=== PATIENT | male | born 1960 | race Caucasian/White ===

== ENCOUNTER 2023-07-27 13:16 | Emergency (ER) | payer SELFPAY ==
[2023-07-27 13:24] VITALS: BP 134/75; PULSE 75; RESP 18; TEMP 36.7; O2SAT 99; BMI 31.7
[2023-07-27 13:51] LABS: Basophils % 0.2 %; Eosinophils # 0.1 10^3/uL (0.0-0.8); Eosinophils % 0.8 %; Hematocrit 49.5 % (37-53); Lymphocytes # 2.4 10^3/uL (0.8-4.8); Lymphocytes % 25.4 %; Mean Corpuscular HGB Conc 35.2 g/dL (30-55); Mean Corpuscular Hemoglobin 30.9 pg (27-33); Mean Corpuscular Volume 87.9 fl (82-101); Mean Platelet Volume 10.5 fL (7.4-10.4); Monocytes # 0.8 10^3/uL (0.2-0.9); Monocytes % 8.1 %; Neutrophils # 6.24 10^3/uL (1.8-7.7); Neutrophils % 65.2 %; Nucleated Red Blood Cells % 0 %; Platelet Count 234 10^3/cmm (157-399); Red Blood Count 5.63 10^6/uL (3.85-5.65); Red Cell Distribution Width 12.2 % (12.1-15.1); White Blood Count 9.59 10^3/uL (3.29-11.43)
[2023-07-27 14:25] LABS: Alanine Aminotransferase 22 U/L (0-41); Albumin Level 4.1 g/dL (3.5-5.2); Alkaline Phosphatase 75 U/L (40-130); Anion Gap 18.2 (5-19); Aspartate Amino Transferase 15 U/L (0-40); Blood Urea Nitrogen 23 mg/dL (8-23); Calcium 9.2 mg/dL (8.5-10.5); Carbon Dioxide 24 mmol/L (22-29); Chloride 94 mmol/L (98-107); Creatinine Clr Calc Pharmacy 63.2696; Globulin 3.6 g/dL (1.3-4.6); Glomerular Filtration Rate 55.4 mL/min (90-130); Glucose 404 mg/dL (65-115); Lipase 25 U/L (13-60); Osmolality Calculated 295 mOsm/kg (285-295); Potassium 4.2 mmol/L (3.5-5.1); Sodium 132 mmol/L (136-145); Total Bilirubin 0.5 mg/dL (0.15-1.2); Total Protein 7.7 g/dL (6.6-8.7)
--- NOTE | 2023-07-27 14:28 | ED_ITS ---
HPI - Nausea/Vomiting/Diarrhea 2 General: Chief complaint: Nausea/Vomiting/Diarrhea Stated complaint: abd pain Time Seen by Provider: 07/27/23 14:26 History of Present Illness: 63-year-old male patient comes in today with nausea for the last 2 to 3 days. Patient has a history of diabetes mellitus. Patient has been off his medications for the last 4 months due to lack of insurance. Patient was on Ozempic and metformin. Patient states he does have some metformin but is not taking it routinely. Patient appears nontoxic. Patient appears in no pain. Patient denies any other chronic medical problems. Associated nausea: Yes Associated symtoms: Reports nausea Review of Systems 2 General: Reports: 10 or more systems reviewed and unremarkable except in HPI and below GI: Reports: nausea PFSH ED 2 PFSH: Social History Smoking and tobacco/nicotine status: former use of tobacco/nicotine Physical Exam 2 Const: COMMON NORMALS: alert HENMT: COMMON NORMALS: normocephalic HEAD & SCALP: normocephalic Neck/C-Spine: COMMON NORMALS: full ROM Resp: COMMON NORMALS: normal respiratory effort and clear to auscultation bilaterally AUSCULTATION: clear to auscultation bilaterally Cardio: COMMON NORMALS: regular rate and regular rhythm RATE: regular rate RHYTHM: regular rhythm GI: COMMON NORMALS: Soft to palpation and non-tender PALPATION: Yes Soft to palpation Back/Pelvis: COMMON NORMALS: thoracic and lumbar spine normal to inspection Extremity: COMMON NORMALS: normal to inspection and no pedal edema Neuro: SENSORIUM/ORIENTATION: Yes alert Psych: COMMON NORMALS: cooperative Skin: COMMON NORMALS: turgor normal GENERAL SKIN EXAM: turgor normal Course 2 Vital Signs: Vital signs: Vital Signs Temperature 98.0 F 07/27/23 13:24 Pulse Rate 75 07/27/23 13:24 Respiratory Rate 18 07/27/23 13:24 Blood Pressure 134/75 07/27/23 13:24 Pulse Oximetry 99 07/27/23 13:24 MDM - Nausea/Vomiting/Diarrhea Medical Decision Making 63-year-old male patient comes in today for complaints of nausea for some time since being without his diabetes medication. Patient reports that he lost his insurance and has been unable to afford medication for his diabetes. On exam abdomen soft nontender. Skin is warm and dry. Vital signs are normal. Differential diagnosis includes hypoglycemia, hyperglycemia, gallbladder disease, electrolyte imbalance, anxiety about health. Patient was infused with 1 L of IV fluids with significant improvement of symptoms. Patient was also given 10 units reduction of blood glucose to 269. We will start patient on glipizide 5 mg once daily in the a.m. Patient will also instructed to continue with his metformin 1-2 tabs twice a day. Prescription for given for 1 month with 2 refills till patient can get followed up with primary care or insurance. Patient states understanding of care plan and need for follow-up or return to the ER. Lab Data 07/27/23 13:37 07/27/23 13:37 Laboratory Results WBC 9.59 10^3/uL (3.29-11.43) 07/27/23 13:37 RBC 5.63 10^6/uL (3.85-5.65) 07/27/23 13:37 Hgb 17.40 g/dL (11.27-16.99) H 07/27/23 13:37 Hct 49.5 % (37-53) 07/27/23 13:37 MCV 87.9 fl (82-101) 07/27/23 13:37 MCH 30.9 pg (27-33) 07/27/23 13:37 MCHC 35.2 g/dL (30-55) 07/27/23 13:37 RDW 12.2 % (12.1-15.1) 07/27/23 13:37 Plt Count 234 10^3/cmm (157-399) 07/27/23 13:37 MPV 10.5 fL (7.4-10.4) H 07/27/23 13:37 Neut % (Auto) 65.2 % 07/27/23 13:37 Lymph % (Auto) 25.4 % 07/27/23 13:37 Burke % (Auto) 8.1 % 07/27/23 13:37 Eos % (Auto) 0.8 % 07/27/23 13:37 Baso % (Auto) 0.2 % 07/27/23 13:37 Neut # (Auto) 6.24 10^3/uL (1.8-7.7) 07/27/23 13:37 Lymph # (Auto) 2.4 10^3/uL (0.8-4.8) 07/27/23 13:37 Burke # (Auto) 0.8 10^3/uL (0.2-0.9) 07/27/23 13:37 Eos # (Auto) 0.1 10^3/uL (0.0-0.8) 07/27/23 13:37 Baso # (Auto) 0.0 10^3/uL (0.0-0.1) 07/27/23 13:37 Nucleated RBC % (auto) 0 % 07/27/23 13:37 Nucleated RBCs # 0.0 /100WBC 07/27/23 13:37 Sodium 132 mmol/L (136-145) L 07/27/23 13:37 Potassium 4.2 mmol/L (3.5-5.1) 07/27/23 13:37 Chloride 94 mmol/L (98-107) L 07/27/23 13:37 Carbon Dioxide 24 mmol/L (22-29) 07/27/23 13:37 Anion Gap 18.2 (5-19) 07/27/23 13:37 BUN 23 mg/dL (8-23) 07/27/23 13:37 Creatinine 1.3 mg/dL (0.7-1.2) H 07/27/23 13:37 GFR Calculation 55.4 mL/min (90-130) L 07/27/23 13:37 Glucose 404 mg/dL (65-115) H 07/27/23 13:37 POC Glucose 269 mg/dL (70-110) H 07/27/23 16:02 Calculated Osmolality 295 mOsm/kg (285-295) 07/27/23 13:37 Calcium 9.2 mg/dL (8.5-10.5) 07/27/23 13:37 Total Bilirubin 0.5 mg/dL (0.15-1.2) 07/27/23 13:37 AST 15 U/L (0-40) 07/27/23 13:37 ALT 22 U/L (0-41) 07/27/23 13:37 Alkaline Phosphatase 75 U/L (40-130) 07/27/23 13:37 Total Protein 7.7 g/dL (6.6-8.7) 07/27/23 13:37 Albumin 4.1 g/dL (3.5-5.2) 07/27/23 13:37 Globulin 3.6 g/dL (1.3-4.6) 07/27/23 13:37 Lipase 25 U/L (13-60) 07/27/23 13:37 Urine Color Yellow (Yellow) 07/27/23 14:44 Urine Appearance Sl hazy (CLEAR) A 07/27/23 14:44 Urine pH 5 (5-7) 07/27/23 14:44 Ur Specific [place] 1.020 (1.005-1.030) 07/27/23 14:44 Urine Protein 1+ (Negative) H 07/27/23 14:44 Urine Glucose (UA) 4+ (Normal) H 07/27/23 14:44 Urine Ketones 1+ (Negative) H 07/27/23 14:44 Urine Blood Neg (Negative) 07/27/23 14:44 Urine Nitrate Negative (Negative) 07/27/23 14:44 Urine Bilirubin 1+ (Negative) H 07/27/23 14:44 Urine Urobilinogen Norm mg/dL (Negative) 07/27/23 14:44 Ur Leukocyte Esterase Trace (Negative) H 07/27/23 14:44 Urine RBC 0-4 /hpf (0-2) H 07/27/23 14:44 Urine WBC 5-10 /hpf (0-5) H 07/27/23 14:44 Ur Squamous Epith Cells 0-4 /hpf (0-5) H 07/27/23 14:44 Amorphous Sediment Not Reportable 07/27/23 14:44 Urine Bacteria None /hpf (NONE) 07/27/23 14:44 Hyaline Casts >100 /lpf H 07/27/23 14:44 Fine Granular Casts 0-4 /lpf H 07/27/23 14:44 Urine Mucus 1+ /hpf 07/27/23 14:44 Serum Ketones Negative (Negative) 07/27/23 13:33 No radiology studies performed this visit Discharge Plan Discharge Patient Disposition: Home Clinical Impression: Dehydration Hyperglycemia due to type 2 diabetes mellitus Qualifiers: Diabetes mellitus senior care insulin use: without senior care use Qualified Code(s): E11.65 - Type 2 diabetes mellitus with hyperglycemia Condition: Stable Prescriptions: New glipizide 5 mg tablet 5 mg PO DAILY Qty: 30 2RF metformin 500 mg tablet extended release 24 hr 1,000 mg PO BID 30 Days Qty: 120 2RF No Action omeprazole 20 mg tablet,delayed release (DR/EC) 20 mg PO DAILY (DME) Diabetic shoes with Acommodated Custom Molded Orthotics See Rx Instructions .Route .MEDSUPPLY Qty: 1 0RF Rx Instructions: As directed [facility] mupirocin 2 % ointment 1 applic topical BID Qty: 22 0RF losartan 25 mg tablet 25 mg PO QAM Discharge Orders: Discharge ED (Routine); Ordered 07/27/23 Ordered By: Nic Jay Referrals: Roge Collazo DO [Primary Care Provider] - Discharge Diet: Usual diet Discharge Activity: Increase activity as tolerated Patient Instructions: Diabetic Hyperglycemia (ED) Activity Restrictions/Additional Instructions: Start glipizide 5 mg every a.m. or at the start of your day to help control your blood sugar. Drink plenty of water and fluids. Take metformin as directed. Follow-up with primary care in 1 to 2 weeks for recheck. Return to ED for worsening symptoms. Coding Level of Care Code ED [employer]
[2023-07-27 14:54] LABS: Ketone (Acetest) Serum Negative (Negative)
[2023-07-27] MEDS: sodium chloride 0.9% 1,000 ML 999 ML IV (15:00)
[2023-07-27] MEDS: insulin regular-human 100 units/1 mL 10 UNIT IVP (15:03)
[2023-07-27 15:20] LABS: Glucose Urine UA 4+ (Normal); Ketones Urine 1+ (Negative); Protein Urine 1+ (Negative); Urine Appearance SL Hazy (CLEAR); Urine Color Yellow (Yellow); pH Urine 5 (5-7)
[2023-07-27 15:21] LABS: Add Urine Microscopic? YES; Bilirubin Urine 1+ (Negative); Blood Urine Neg (Negative); Leukocyte Esterase Urine Trace (Negative); Nitrate Urine Negative (Negative); Urobilinogen Urine Norm (Negative)
[2023-07-27 15:46] LABS: Add Urine Culture? No; Fine Granular Casts Urine 0-4 /lpf; Hyaline Casts Urine >100 /lpf; Mucus Urine 1+ /hpf; RBC Urine 0-4 /hpf (0-2); Squamous Epithelial Cell Urine 0-4 /hpf (0-5)
[2023-07-27 16:09] LABS: Glucose Point of Care 269 mg/dL (70-110)
== END 2023-07-27 16:32 | disposition home or self-care (01) ==
PROVIDERS: Emergency Medicine; Emergency Provider Nurse Practitioner Family; PCP Family Medicine
DX: E11.65 Type 2 diabetes mellitus with hyperglycemia (principal); E86.0 Dehydration; Z87.891 Personal history of nicotine dependence
CPT/HCPCS: 36415; 36416; 80053; 81001; 82009; 82962; 83690; 85025; 96361; 96374; 99284; J1815; J7030

== ENCOUNTER → 2023-09-12 11:05 | Outpatient (BNVA) | payer SELFPAY | PROVIDERS: PCP Family Medicine; Visit Provider Podiatrist Foot & Ankle Surgery | DX: L97.522 Non-pressure chronic ulcer of other part of left foot with fat layer exposed (principal); E11.42 Type 2 diabetes mellitus with diabetic polyneuropathy | CPT/HCPCS: 87070; 87075; 87077; 87186; 87205 ==

== ENCOUNTER → 2023-12-28 10:36 | Outpatient (BNVA) | payer SELFPAY | PROVIDERS: Visit Provider Internal Medicine | DX: E11.42 Type 2 diabetes mellitus with diabetic polyneuropathy (principal); E78.5 Hyperlipidemia, unspecified; R73.9 Hyperglycemia, unspecified | CPT/HCPCS: 36415; 80053; 80061; 82044; 83036 ==

== ENCOUNTER 2024-04-17 09:09 | Outpatient (CLI) | payer SELFPAY ==
[2024-04-17 09:59] LABS: Estmated Average Glucose 183
[2024-04-17 10:03] LABS: Alanine Aminotransferase 28 U/L (0-41); Albumin Level 4.4 g/dL (3.5-5.2); Alkaline Phosphatase 65 U/L (40-130); Anion Gap 12.7 (5-19); Aspartate Amino Transferase 18 U/L (0-40); Blood Urea Nitrogen 22 mg/dL (8-23); Calcium 9.6 mg/dL (8.5-10.5); Carbon Dioxide 29 mmol/L (22-29); Chloride 101 mmol/L (98-107); Chol HDL Ratio 5.03 mg/dL (1.0-5.00); Cholesterol 186 mg/dL (0-200); Globulin 3.2 g/dL (1.3-4.6); Glomerular Filtration Rate 84.4 mL/min (90-130); Glucose 144 mg/dL (65-115); HDL Cholesterol 37 mg/dL (60-100); LDL Cholesterol Calculated 116 mg/dL (50-129); LDL HDL Ratio 3.14 RATIO (0.00-3.22); Osmolality Calculated 292 mOsm/kg (285-295); Potassium 4.7 mmol/L (3.5-5.1); Sodium 138 mmol/L (136-145); Total Bilirubin 0.4 mg/dL (0.15-1.2); Total Protein 7.6 g/dL (6.6-8.7); Triglycerides 164 mg/dL (0-150)
[2024-04-17 10:04] LABS: Creatinine Urine, Random 130 mg/dL (39-259); Microalbum Creatinine Ratio Ur 208 mg/dL (0-20); Microalbumin Random Urine 27 ug/dL (0-20)
== END 2024-04-17 09:10 | disposition home or self-care (01) ==
LOC: LAB 09:10
PROVIDERS: Visit Provider Internal Medicine
DX: E11.42 Type 2 diabetes mellitus with diabetic polyneuropathy (principal); E78.5 Hyperlipidemia, unspecified
CPT/HCPCS: 36415; 80053; 80061; 82044; 83036

== ENCOUNTER → 2024-07-18 09:51 | Outpatient (BNVA) | payer MEDICARE, SELFPAY | PROVIDERS: Visit Provider Internal Medicine | DX: E11.42 Type 2 diabetes mellitus with diabetic polyneuropathy (principal); Z79.4 Long term (current) use of insulin; E78.2 Mixed hyperlipidemia | CPT/HCPCS: 99214 ==

== ENCOUNTER → 2024-08-01 12:53 | Outpatient (BNVA) | payer MEDICARE, SELFPAY | PROVIDERS: Visit Provider Podiatrist Foot & Ankle Surgery | DX: E11.621 Type 2 diabetes mellitus with foot ulcer (principal); L97.523 Non-pressure chronic ulcer of other part of left foot with necrosis of muscle; E11.42 Type 2 diabetes mellitus with diabetic polyneuropathy; M20.41 Other hammer toe(s) (acquired), right foot; M20.42 Other hammer toe(s) (acquired), left foot; Z79.4 Long term (current) use of insulin | CPT/HCPCS: 11042; 99213 ==

== ENCOUNTER → 2024-08-21 06:48 | Outpatient (BNVA) | payer MEDICARE, SELFPAY | PROVIDERS: Visit Provider Podiatrist Foot & Ankle Surgery | DX: E11.42 Type 2 diabetes mellitus with diabetic polyneuropathy (principal); E11.621 Type 2 diabetes mellitus with foot ulcer; L97.522 Non-pressure chronic ulcer of other part of left foot with fat layer exposed; Z79.4 Long term (current) use of insulin | CPT/HCPCS: 99213 ==

== ENCOUNTER → 2024-09-18 08:44 | Outpatient (BNVA) | payer MEDICARE, SELFPAY | PROVIDERS: Visit Provider Podiatrist Foot & Ankle Surgery | DX: E11.621 Type 2 diabetes mellitus with foot ulcer (principal); L97.522 Non-pressure chronic ulcer of other part of left foot with fat layer exposed; E11.42 Type 2 diabetes mellitus with diabetic polyneuropathy; Z79.4 Long term (current) use of insulin; M62.462 Contracture of muscle, left lower leg; M77.42 Metatarsalgia, left foot | CPT/HCPCS: 11042; 73630; 99214 ==

== ENCOUNTER → 2024-10-02 11:18 | Outpatient (BNVA) | payer MEDICARE, SELFPAY | PROVIDERS: Visit Provider Podiatrist Foot & Ankle Surgery | DX: E11.621 Type 2 diabetes mellitus with foot ulcer (principal); L97.522 Non-pressure chronic ulcer of other part of left foot with fat layer exposed; E11.42 Type 2 diabetes mellitus with diabetic polyneuropathy; M62.462 Contracture of muscle, left lower leg; M77.42 Metatarsalgia, left foot; Z79.4 Long term (current) use of insulin | CPT/HCPCS: 99213 ==

== ENCOUNTER → 2024-10-08 14:54 | Outpatient (BNVA) | payer MEDICARE, SELFPAY | DX: Z12.5 Encounter for screening for malignant neoplasm of prostate (principal) | CPT/HCPCS: G0103 ==

== ENCOUNTER → 2024-10-15 14:18 | Outpatient (BNVA) | payer MEDICARE, SELFPAY | PROVIDERS: Visit Provider Podiatrist Foot & Ankle Surgery | DX: E11.621 Type 2 diabetes mellitus with foot ulcer (principal); L97.523 Non-pressure chronic ulcer of other part of left foot with necrosis of muscle; E11.42 Type 2 diabetes mellitus with diabetic polyneuropathy; M62.462 Contracture of muscle, left lower leg; M77.42 Metatarsalgia, left foot; L03.116 Cellulitis of left lower limb; Z79.4 Long term (current) use of insulin | CPT/HCPCS: 11043; 99214 ==

== ENCOUNTER → 2024-10-21 09:16 | Outpatient (BNVA) | payer MEDICARE, SELFPAY | PROVIDERS: Visit Provider Podiatrist Foot & Ankle Surgery | DX: E11.42 Type 2 diabetes mellitus with diabetic polyneuropathy (principal); M62.462 Contracture of muscle, left lower leg; M77.42 Metatarsalgia, left foot; L97.523 Non-pressure chronic ulcer of other part of left foot with necrosis of muscle; E11.621 Type 2 diabetes mellitus with foot ulcer; Z79.4 Long term (current) use of insulin | CPT/HCPCS: 99213 ==

== ENCOUNTER → 2024-10-24 10:19 | Outpatient (BNVA) | payer MEDICARE, SELFPAY | PROVIDERS: Visit Provider Student in an Organized Health Care Education/Training Program | DX: Z12.11 Encounter for screening for malignant neoplasm of colon (principal) | CPT/HCPCS: 99024; 99204 ==

== ENCOUNTER → 2024-10-31 11:51 | Outpatient (BNVA) | payer MEDICARE, SELFPAY | DX: E78.2 Mixed hyperlipidemia (principal); E11.42 Type 2 diabetes mellitus with diabetic polyneuropathy; Z79.4 Long term (current) use of insulin | CPT/HCPCS: 80053; 80061; 83036 ==

== ENCOUNTER 2024-11-01 13:07 | Outpatient (CLI) | payer MEDICARE, SELFPAY ==
--- NOTE | 2024-11-01 13:30 | CT_ITS ---
WS: [id number] LDCT LUNG CANCER SCREENING HISTORY: screening TECHNIQUE: Axial imaging performed from the apices to 1 cm below the costophrenic angles. Coronal and sagittal reformats are submitted with axial MIP series. All CT scans at [facility] use at least one of these dose optimization techniques: automated exposure control; mA and/or kV adjustment per patient size (includes targeted exams where dose is matched to clinical indication); or iterative reconstruction. DLP: 120.60 mGy.cm DIvol: Mean CTDIvol: 2.70 (mGy) COMPARISON: None available. Diagnostic quality: Satisfactory Lungs: Mild pulmonary hyperexpansion. Mild peripheral interstitial thickening. No pulmonary mass or nodule. No endobronchial lesions. Heart: Normal size heart with no pericardial effusion.. Other findings: Mild atherosclerosis aorta. Normal size pulmonary artery. No mediastinal or hilar adenopathy. Mild hyperplasia LEFT adrenal gland. Mild thoracic spondylosis. CT/CT lung screening [id number] IMPRESSION: LUNG-RADS: 2-Benign Appearance or Behavior FOLLOW UP: 12 Month: Continue annual screening with LDCT OTHER FINDINGS (S MODIFIER): None.
[2024-11-01 14:02] LABS: Creatinine Urine, Random 272 mg/dL (39-259)
[2024-11-01 14:16] LABS: Microalbum Creatinine Ratio Ur 294 mg/dL (0-20); Microalbumin Random Urine 80 ug/dL (0-20)
== END 2024-11-01 13:08 | disposition home or self-care (01) ==
LOC: RAD 13:08
PROVIDERS: Absent Provider Internal Medicine
DX: Z12.2 Encounter for screening for malignant neoplasm of respiratory organs (principal); I70.0 Atherosclerosis of aorta; Z87.891 Personal history of nicotine dependence; E11.42 Type 2 diabetes mellitus with diabetic polyneuropathy; Z79.4 Long term (current) use of insulin
CPT/HCPCS: 71271; 82044

== ENCOUNTER → 2024-11-05 08:33 | Outpatient (BNVA) | payer MEDICARE, SELFPAY | PROVIDERS: Visit Provider Internal Medicine | DX: E11.42 Type 2 diabetes mellitus with diabetic polyneuropathy (principal); Z79.4 Long term (current) use of insulin; E78.2 Mixed hyperlipidemia | CPT/HCPCS: 99214 ==

== ENCOUNTER → 2024-11-11 09:25 | Outpatient (BNVA) | payer MEDICARE, SELFPAY | PROVIDERS: Visit Provider Podiatrist Foot & Ankle Surgery | DX: E11.621 Type 2 diabetes mellitus with foot ulcer (principal); L97.523 Non-pressure chronic ulcer of other part of left foot with necrosis of muscle; E11.42 Type 2 diabetes mellitus with diabetic polyneuropathy; M62.462 Contracture of muscle, left lower leg; M77.42 Metatarsalgia, left foot; Z79.4 Long term (current) use of insulin | CPT/HCPCS: 11042 ==

== ENCOUNTER 2024-11-12 12:41 | Day surgery (SDC) | payer MEDICARE, SELFPAY ==
[2024-11-12 12:47] VITALS: BMI 35.2
[2024-11-12 12:55] VITALS: BP 127/70; PULSE 70; RESP 18; TEMP 36.6; O2SAT 97
--- NOTE | 2024-11-12 13:04 | P.ANESASSM_ITS ---
Pre-Anesthetic Assessment Height/Weight: Height 1.73 m Weight 105.233 kg Temp Pulse Resp BP Pulse Ox O2 Del Method 97.9 F 70 18 127/70 97 Room Air 11/12/24 12:55 11/12/24 12:55 11/12/24 12:55 11/12/24 12:55 11/12/24 12:55 11/12/24 12:55 Operation Date: 11/12/24 14:00 Proposed Procedures p Colonoscopy 85269 G0121 Z12.11(Not Applicable) - Melvin Marquez MD Familial anesthetic complications: None Was Beta Virgil taken within 24 hours: N/A Was Clonidine taken within 24 hours: N/A Social No alcohol and No tobacco (Quit 2 years ago) Exam alert, oriented x 3, clear to auscultation bilaterally and regular rate & rhythm Airway Submandibular: within normal limits Cervical ROM: within normal limits Mallampati: Class II Dentition: full History/ROS No significant history except as noted and No significant complaints Pulmonary Chronic Obstructive Pulmonary Disease and Exertional Dyspnea CV/HEM Coronary Artery Disease and Hypertension None reported Hepatic None reported GI Gastroesophageal Reflux Disease (None this morning) Metabolic Diabetes Mellitus and Hyperlipidemia [facility] Lower Back Pain and Osteoarthritis/DJD Neuropsych Neuropathy Anesthetic Plan ASA status: 3 Anesthesia: Anesthesia Evaluation, General and MAC Risk of > 500 ml blood loss (7ml/kg in children): No Medications/Allergies Home Medications ?Medication ?Instructions ?Recorded ?Confirmed ?Last Taken ?Type Diabetic shoes #1 ea 08/01/24 11/11/24 Unkn own Rx blood-glucose,payer specialist,cont #1 ea 08/05/24 11/11/24 Un known Rx (Dexcom G7 Freezer Operator) blood-glucose sensor (Dexcom G7 #2 ea 09/30/24 5 Unknown Rx Sensor device) atorvastatin 40 mg tablet 40 mg PO DAILY #90 tabs 10/1311/11/24 11/11/24 Rx losartan 50 mg tablet 50 mg PO DAILY #90 tabs 10/1311/11/24 11/11/24 Rx gabapentin 300 mg capsule 300 mg PO TID 90 days #270 c aps 11/05/24 11/11/24 07/0 06/08 Rx nateglinide 60 mg tablet 60 mg PO TID 90 days #270 ta bs 11/05/24 11/11/24 11/11/24 Rx insulin glargine 100 unit/mL (3 80 unit SUBCUT QAM 11/11/24 11/11/24 History mL) subcutaneous pen (Lantus Solostar U-100 Insulin) Allergies Allergy/AdvReac Type Severity Reaction Status Date / Time No Known Allergies Allergy Verified 11/12/24 12:51 Current Medications Generic Name Dose Route Start Last Admin Trade Name Freq PRN Reason Stop Dose Admin Sodium Chloride 1,000 mls @ 15 mls/hr 11/12/24 12:43 11/12/24 12:55 Sodium Chloride 0.9% IV 11/13/24 12:42 15 mls/hr .Q24H PRN Administration COLONOSCOPY FLUIDS PFSH Anesthesia Medical History Colon cancer screening Hypertension Tonsillectomy planned Amputation of right index finger Hyperglycemia Hyperlipemia Type 2 diabetes mellitus with diabetic polyneuropathy Family History Mother Stroke Father Drug dependence Brother Cancer Gastric Social History Smoking and tobacco/nicotine status: former use of tobacco/nicotine
--- NOTE | 2024-11-12 13:05 | W.PM.OPSUD ---
Surgery/Procedure H&P Update DATE OF PROCEDURE: November 12, 2024 DATE H&P PERFORMED: 10/24/24 H&P UPDATE INFORMATION: I have reviewed H&P completed within last 30 days, I have examined patient prior to procedure and No changes to prior documentation PLANNED PROCEDURE: Operation Date: 11/12/24 14:00 Proposed Procedures p Colonoscopy [id number] G0121 Z12.11(Not Applicable) - Melvin Marquez MD
[2024-11-12 13:51] VITALS: BP 108/51; PULSE 56; RESP 16; TEMP 36.9; O2SAT 95
[2024-11-12 14:10] VITALS: BP 116/59; PULSE 65; RESP 18; O2SAT 94
== END 2024-11-12 14:30 | disposition home or self-care (01) ==
PROVIDERS: Visit Provider Student in an Organized Health Care Education/Training Program
PROC: 0DJD8ZZ Inspection of Lower Intestinal Tract, Via Natural or Artificial Opening Endoscopic (ICD-10-PCS; CPT 45378; principal; 2024-11-12 14:00)
DX: Z12.11 Encounter for screening for malignant neoplasm of colon (principal); D12.0 Benign neoplasm of cecum; D12.3 Benign neoplasm of transverse colon; K62.1 Rectal polyp; J44.9 Chronic obstructive pulmonary disease, unspecified; I25.10 Atherosclerotic heart disease of native coronary artery without angina pectoris; I10 Essential (primary) hypertension; K21.9 Gastro-esophageal reflux disease without esophagitis; E78.5 Hyperlipidemia, unspecified; E11.40 Type 2 diabetes mellitus with diabetic neuropathy, unspecified; Z79.899 Other long term (current) drug therapy; Z79.4 Long term (current) use of insulin; Z80.0 Family history of malignant neoplasm of digestive organs; Z87.891 Personal history of nicotine dependence
CPT/HCPCS: 36416; 45380; 45385; 82962; 88305; J2704; J3490; J7030

== ENCOUNTER → 2024-11-25 08:53 | Outpatient (BNVA) | payer MEDICARE, SELFPAY | PROVIDERS: Visit Provider Podiatrist Foot & Ankle Surgery | DX: E11.621 Type 2 diabetes mellitus with foot ulcer (principal); L97.522 Non-pressure chronic ulcer of other part of left foot with fat layer exposed; E11.42 Type 2 diabetes mellitus with diabetic polyneuropathy; M77.42 Metatarsalgia, left foot; M24.572 Contracture, left ankle; Z09 Encounter for follow-up examination after completed treatment for conditions other than malignant neoplasm; Z79.84 Long term (current) use of oral hypoglycemic drugs | CPT/HCPCS: 11042; 99213; 99214 ==

== ENCOUNTER → 2025-01-14 09:57 | Outpatient (BNVA) | payer MEDICARE, SELFPAY | PROVIDERS: Visit Provider Podiatrist Foot & Ankle Surgery | DX: E11.621 Type 2 diabetes mellitus with foot ulcer (principal); L97.522 Non-pressure chronic ulcer of other part of left foot with fat layer exposed; E11.42 Type 2 diabetes mellitus with diabetic polyneuropathy; M77.42 Metatarsalgia, left foot; M24.572 Contracture, left ankle; I10 Essential (primary) hypertension | CPT/HCPCS: 11042 ==

== ENCOUNTER → 2025-02-05 08:40 | Outpatient (BNVA) | payer MEDICARE, SELFPAY | PROVIDERS: Visit Provider Podiatrist Foot & Ankle Surgery | DX: Z01.818 Encounter for other preprocedural examination (principal); E11.42 Type 2 diabetes mellitus with diabetic polyneuropathy; M77.42 Metatarsalgia, left foot; M24.572 Contracture, left ankle; L97.522 Non-pressure chronic ulcer of other part of left foot with fat layer exposed; I10 Essential (primary) hypertension; E11.621 Type 2 diabetes mellitus with foot ulcer; Z79.4 Long term (current) use of insulin | CPT/HCPCS: 99213 ==

== ENCOUNTER → 2025-02-12 10:24 | Outpatient (BNVA) | payer MEDICARE, SELFPAY | PROVIDERS: Visit Provider Internal Medicine | DX: E11.42 Type 2 diabetes mellitus with diabetic polyneuropathy (principal); E11.65 Type 2 diabetes mellitus with hyperglycemia; E78.2 Mixed hyperlipidemia; Z79.4 Long term (current) use of insulin | CPT/HCPCS: 99214 ==

== ENCOUNTER → 2025-02-19 09:56 | Outpatient (BNVA) | payer MEDICARE, SELFPAY | PROVIDERS: Visit Provider Podiatrist Foot & Ankle Surgery | DX: E11.621 Type 2 diabetes mellitus with foot ulcer (principal); L97.522 Non-pressure chronic ulcer of other part of left foot with fat layer exposed; Z01.818 Encounter for other preprocedural examination; E11.42 Type 2 diabetes mellitus with diabetic polyneuropathy; M77.42 Metatarsalgia, left foot; M24.572 Contracture, left ankle; I10 Essential (primary) hypertension; Z79.4 Long term (current) use of insulin | CPT/HCPCS: 99213 ==

== ENCOUNTER 2025-03-11 10:14 | Outpatient (CLI) | payer MEDICARE, SELFPAY ==
--- NOTE | 2025-03-11 10:19 | XR_ITS ---
WS: [id number] Exam: XR shoulder LT min 2V* [id number] Date/Time of Exam: 03/11/2025 10:35 AM Reason For Exam: left shoulder pain DLP: No acute fracture. Soft tissue calcification along the greater tuberosity of the humerus suggesting calcific tendinitis and/or bursitis. Subacromial bone spurring. Calcification along the superior margin of the glenoid. Mild DJD at the AC joint. XR/XR shoulder LT min 2V* [id number] IMPRESSION: 1. Findings suggest calcific tendinitis/bursitis. 2. Prominent subacromial bone spur. Mild degenerative changes and soft tissue c alcifications.
== END 2025-03-11 10:15 | disposition home or self-care (01) ==
LOC: RAD 10:16
DX: M19.012 Primary osteoarthritis, left shoulder (principal); M25.712 Osteophyte, left shoulder
CPT/HCPCS: 73030

== ENCOUNTER → 2025-03-19 10:28 | Outpatient (BNVA) | payer MEDICARE, SELFPAY | PROVIDERS: Visit Provider Podiatrist Foot & Ankle Surgery | DX: E11.621 Type 2 diabetes mellitus with foot ulcer (principal); L97.522 Non-pressure chronic ulcer of other part of left foot with fat layer exposed; E11.42 Type 2 diabetes mellitus with diabetic polyneuropathy; M77.42 Metatarsalgia, left foot; M24.572 Contracture, left ankle; I10 Essential (primary) hypertension; Z01.818 Encounter for other preprocedural examination; Z79.4 Long term (current) use of insulin | CPT/HCPCS: 99213 ==

== ENCOUNTER → 2025-04-16 09:07 | Outpatient (BNVA) | payer MEDICARE, SELFPAY | PROVIDERS: Visit Provider Podiatrist Foot & Ankle Surgery | DX: E11.42 Type 2 diabetes mellitus with diabetic polyneuropathy (principal); M77.42 Metatarsalgia, left foot; M24.572 Contracture, left ankle; L97.522 Non-pressure chronic ulcer of other part of left foot with fat layer exposed; I10 Essential (primary) hypertension; E11.621 Type 2 diabetes mellitus with foot ulcer; Z79.4 Long term (current) use of insulin | CPT/HCPCS: 99213 ==

== ENCOUNTER → 2025-05-14 09:22 | Outpatient (BNVA) | payer MEDICARE, SELFPAY | PROVIDERS: Visit Provider Podiatrist Foot & Ankle Surgery | DX: E11.42 Type 2 diabetes mellitus with diabetic polyneuropathy (principal); M77.42 Metatarsalgia, left foot; M24.572 Contracture, left ankle; E11.621 Type 2 diabetes mellitus with foot ulcer; L97.522 Non-pressure chronic ulcer of other part of left foot with fat layer exposed; I10 Essential (primary) hypertension; Z01.818 Encounter for other preprocedural examination; Z79.4 Long term (current) use of insulin | CPT/HCPCS: 99213 ==